=== PATIENT | female | born 1965 | race Caucasian/White ===

== ENCOUNTER 2017-05-31 01:20 | Emergency (ER) | payer BC ==
[~2017-05-31] VITALS: Ht 170.2 cm; Wt 57.2 kg
[~2017-05-31 01:20] MED LIST: CIPROFLOXACIN500 M1 PO; ENDOCET 5-3251 EACH PO; KAPIDEX PO; PERCOCET 5/31 TABLET PO; PROMETHAZINE HC25 M1 PO; PROTONIX40 MG PO; REQUIP0.25 MG PO; TAMSULOSIN HCL0.4 MG PO
[2017-05-31 03:47] LABS: APPEARANCE CLEAR ((CLEAR)); BILIRUBIN NEGATIVE; BLOOD SMALL; COLOR YELLOW ((YELLOW)); GLUCOSE (STRIP) NEGATIVE; KETONES NEGATIVE; LEUKOCYTES NEGATIVE; NITRITE NEGATIVE; PROTEIN (STRIP) NEGATIVE; UROBILINOGEN 0.2 MG/DL (0.2-1.0)
[2017-05-31 03:51] LABS: BACTERIA NONE SEEN /HPF; EPITHELIAL CELLS RARE /HPF; HYALINE CASTS 0-5 /LPF; MUCUS TRACE /LPF; RED BLOOD CELLS 0-5 /HPF (0-5); UCUL ADDED? NO; WHITE BLOOD CELLS 0-5 /HPF (0-5)
[2017-05-31 07:07] VITALS: BP 121/76
== END 2017-05-31 06:25 | disposition left against medical advice (07) ==
LOC: EME 01:20
DX: M54.9 Dorsalgia, unspecified (principal); Z53.21 Procedure and treatment not carried out due to patient leaving prior to being seen by health care provider
CPT/HCPCS: 81003